=== PATIENT | female | born 1965 | race Caucasian/White ===

== ENCOUNTER 2017-09-06 10:15 | Emergency (ER) | payer BC ==
[~2017-09-06] VITALS: Ht 157.5 cm; Wt 70.5 kg
[2017-09-06] MEDS ORDERED: GLIP1TAB49 PO (10:24)
[2017-09-06] MEDS ORDERED: ALEV220C2 PO (10:24)
--- NOTE | 2017-09-06 11:59 | REP ---
Clinical: Right flank pain. Comparison: 12/03/2014. Findings: Liver, spleen, pancreas, gallbladder, bilateral adrenal glands and kidneys are normal for noncontrast evaluation. Specifically, no perinephric stranding, hydroureteronephrosis, intrarenal or obstructing ureteral calculi are identified. The enteric system is without obstruction or acute inflammatory process and a normal terminal ileum and appendix are identified in the right lower quadrant. Pelvis demonstrates normal bladder and uterus/left adnexa. Cystic changes to the right adnexa measure up to 4.6 cm and are likely related to menstrual cycle as well as possibly related to patient's symptoms. No pelvic fluid or ascites. No free air. No adenopathy. Abdominal aorta without aneurysm. Musculoskeletal structures are intact. Lung bases are clear. Impression: 1. Normal urinary tract system and right lower quadrant/appendix. 2. Cystic changes to the right adnexa measuring up to 4.6 cm maximal diameter likely physiologic and possibly related to patient's symptoms. 3. No further acute abdominopelvic pathology appreciated. No free fluid. Signed by Hima Dumont MD 09/06/2017 11:51 A
[2017-09-06] MEDS ORDERED: CYCL10TA PO (12:23)
[2017-09-06 12:43] VITALS: BP 147/92
== END 2017-09-06 12:46 | disposition home or self-care (01) ==
LOC: M ED 10:15
DX: R10.9 Unspecified abdominal pain (principal); K25.9 Gastric ulcer, unspecified as acute or chronic, without hemorrhage or perforation; Z79.84 Long term (current) use of oral hypoglycemic drugs; Z79.899 Other long term (current) drug therapy; Z88.8 Allergy status to other drugs, medicaments and biological substances

== ENCOUNTER 2019-01-12 12:25 | Emergency (ER) | payer BC ==
[~2019-01-12] VITALS: Ht 157.5 cm; Wt 71.8 kg
[~2019-01-12 12:25] MED LIST: ALEV220C2 PO; CYCL10TA PO; GLIP5TAB20 PO
[2019-01-12] MEDS ORDERED: LISI10TA4 (12:51)
[2019-01-12] MEDS ORDERED: TRAZ-160 (12:51)
[2019-01-12] MEDS ORDERED: PIOG1TAB36 (12:51)
[2019-01-12] MEDS ORDERED: ASPI81TA85 PO (12:51)
[2019-01-12] MEDS ORDERED: ALPR0.5T3 (12:51)
[2019-01-12] MEDS ORDERED: TETRACAINE 0.5% OPHTH SOLN 4ML OU ONE (13:30)
[2019-01-12 14:20] VITALS: BP 140/69
== END 2019-01-12 14:22 | disposition home or self-care (01) ==
LOC: M ED 12:25
DX: H43.12 Vitreous hemorrhage, left eye (principal); E11.9 Type 2 diabetes mellitus without complications; Z88.8 Allergy status to other drugs, medicaments and biological substances; Z79.899 Other long term (current) drug therapy; Z79.82 Long term (current) use of aspirin

== ENCOUNTER 2019-01-14 13:05 | Emergency (ER) | payer BC ==
[~2019-01-14] VITALS: Ht 157.5 cm; Wt 71.8 kg
[~2019-01-14 13:05] MED LIST changes: +ALPR0.5T3; +ASPI81TA85 PO; +LISI10TA4; +PIOG1TAB36; +TRAZ-160
[2019-01-14 13:06] VITALS: BP 138/77
[2019-01-14] MEDS ORDERED: VALI10TA PO (14:02)
== END 2019-01-14 14:12 | disposition home or self-care (01) ==
LOC: M ED 13:05
DX: Z76.0 Encounter for issue of repeat prescription (principal); F41.9 Anxiety disorder, unspecified; E11.9 Type 2 diabetes mellitus without complications; Z79.82 Long term (current) use of aspirin; Z79.899 Other long term (current) drug therapy; Z88.8 Allergy status to other drugs, medicaments and biological substances; Z98.890 Other specified postprocedural states

== ENCOUNTER → 2019-04-05 | Outpatient (REF) | payer BC ==
[~2019-04-05] MED LIST changes: -TRAZ-160; +TRAZ-252; +VALI10TA PO
== END ==
LOC: M LAB REF 19:12
PROVIDERS: ATTEND Physician Assistant
DX: N39.0 Urinary tract infection, site not specified (principal)

== ENCOUNTER 2019-05-10 21:10 | Emergency (ER) | payer BC ==
[~2019-05-10] VITALS: Ht 157.5 cm; Wt 71.8 kg
[2019-05-10] MEDS ORDERED: IBUPROFEN 600 MG TAB PO ONE (22:00)
[2019-05-10] MEDS ORDERED: PERCOCET 5MG/325MG TAB PO ONE (22:30)
[2019-05-10] MEDS ORDERED: LIDOCAINE 1% MDV 20ML VIAL IM ONE (22:45)
[2019-05-10] MEDS ORDERED: ADACEL/BOOSTRIX VACCINE (DIPHTH/PERTUSS/ACELL/TETANUS)0.5ML SYR (90715) IM ONE (22:45)
--- NOTE | 2019-05-11 00:11 | REPVR ---
EXAM: CT Head Without Contrast EXAM DATE/TIME: 05/10/2019 10:26 PM CLINICAL HISTORY: 54 years old, female; Injury or trauma; Injury history: Dog bite; Initial encounter; Concussion / head injury; Additional info: Dog attack, heard crunching, soft areas in occiput TECHNIQUE: Imaging protocol: Computed tomography images of the head without contrast. Radiation optimization: All CT scans at this facility use at least one of these dose optimization techniques: automated exposure control; mA and/or kV adjustment per patient size (includes targeted exams where dose is matched to clinical indication); or iterative reconstruction. COMPARISON: No relevant prior studies available. FINDINGS: Brain: Normal. No hemorrhage. Unremarkable white matter. No mass effect. Ventricles: Normal. No ventriculomegaly. Bones/joints: Unremarkable. No acute fracture. Sinuses: Visualized sinuses are unremarkable. No fluid levels. Mastoid air cells: Visualized mastoid air cells are well aerated. No mastoid effusion. Soft tissues: Moderate soft tissue swelling and foci of air in the posterior parieto-occipital scalp. IMPRESSION: No intracranial abnormality. Moderate soft tissue swelling and foci of air in the posterior parieto-occipital scalp. Electronically signed by: Sabiha Jolly On 05/11/2019 00:10:42 AM
[2019-05-11 00:45] VITALS: BP 124/64
[2019-05-11] MEDS ORDERED: cefTRIAXone SOD 1 GM VIAL (J0696) IM ONE (00:45)
[2019-05-11] MEDS ORDERED: LIDOCAINE 1% SDV 5 ML VIAL DILUENT ONE (00:45)
[2019-05-11] MEDS ORDERED: AUGMENTIN 875 MG TAB PO ONE (00:45)
[2019-05-11] MEDS ORDERED: AUGM875T28 PO (00:45)
[2019-05-11] MEDS ORDERED: NORC1TAB7 PO (00:46)
[2019-05-11] MEDS ORDERED: JARD1TAB3 OR (00:52)
[2019-05-11] MEDS ORDERED: ATOR1TAB19 OR (00:52)
[2019-05-11] MEDS ORDERED: NORCO 5/325MG TABLET (BULK FOR ED) PO ONE (01:00)
== END 2019-05-11 01:10 | disposition home or self-care (01) ==
LOC: M ED 21:10
DX: S01.01XA Laceration without foreign body of scalp, initial encounter (principal); S01.85XA Open bite of other part of head, initial encounter; W54.0XXA Bitten by dog, initial encounter; Y92.199 Unspecified place in other specified residential institution as the place of occurrence of the external cause; Y93.9 Activity, unspecified; E11.9 Type 2 diabetes mellitus without complications; Z79.84 Long term (current) use of oral hypoglycemic drugs; Z79.899 Other long term (current) drug therapy; Z88.2 Allergy status to sulfonamides; Z88.8 Allergy status to other drugs, medicaments and biological substances
CPT/HCPCS: 70450; 90715; 99283; J0696

== ENCOUNTER 2021-03-16 16:10 | Emergency (ER) | payer BC ==
[~2021-03-16] VITALS: Ht 157.5 cm; Wt 73.8 kg
[~2021-03-16 16:10] MED LIST changes: -ASPI81TA85 PO; +ASPI81TA86 PO; +ATOR1TAB19 OR; +AUGM875T28 PO; +CYCL-707 PO; -CYCL10TA PO; +JARD1TAB3 OR; +LISI10TA22; -LISI10TA4; +NORC1TAB7 PO
[2021-03-16 17:26] LABS: BASO # 0.1 10^3/uL (0.0-0.2); BASO % 0.7 % (0.0-1.0); EOS # 0.1 10^3/uL (0.0-0.5); EOS % 1.2 % (0.0-3.0); HEMATOCRIT 40.1 % (36.0-47.0); HEMOGLOBIN 13.5 g/dl (12.0-15.5); LYMPH # 2.8 10^3/uL (1.5-5.0); LYMPH % 38.3 % (24.0-44.0); MEAN CORPUSCULAR HEMOGLOBIN 28.8 pg (27.0-33.0); MEAN CORPUSCULAR HGB CONC 33.7 g/dl (32.0-36.5); MEAN CORPUSCULAR VOLUME 85.5 fl (80.0-96.0); MONO # 0.7 10^3/uL (0.0-0.8); MONO % 9.3 % (2.0-8.0); NEUTROPHILS # 3.6 10^3/uL (1.5-8.5); NEUTROPHILS % 50.1 % (36.0-66.0); PLATELET COUNT, AUTOMATED 336 10^3/uL (150-450); RED BLOOD COUNT 4.69 10^6/uL (4.00-5.40); WHITE BLOOD COUNT 7.3 10^3/uL (4.0-10.0)
--- NOTE | 2021-03-16 17:33 | REP ---
INDICATION: CHEST PAIN COMPARISON: None. TECHNIQUE: Portable AP view of the chest FINDINGS: The mediastinum and cardiac silhouette are within normal limits for portable technique. The lung chavez are clear without acute consolidation, effusion, or pneumothorax. Skeletal structures are intact. IMPRESSION: No acute cardiopulmonary process appreciated. <Electronically signed by Hima Dumont > 03/16/21 [id number]
[2021-03-16 17:36] LABS: INR 0.94; PROTHROMBIN TIME 12.8 SECONDS (12.5-14.3)
[2021-03-16 17:54] LABS: ALBUMIN 3.9 GM/DL (3.2-5.2); ALT/SGPT 19 U/L (12-78); BILIRUBIN,DIRECT 0.2 MG/DL (0.0-0.2); BILIRUBIN,TOTAL 0.6 MG/DL (0.2-1.0); BLOOD UREA NITROGEN 12 MG/DL (7-18); CALCIUM LEVEL 10.4 MG/DL (8.5-10.1); CARBON DIOXIDE LEVEL 28 MEQ/L (21-32); CHLORIDE LEVEL 99 MEQ/L (98-107); CREATININE FOR GFR 0.67 MG/DL (0.55-1.30); GLOMERULAR FILTRATION RATE > 60.0 (>51); GLUCOSE, FASTING 171 MG/DL (70-100); LIPASE 112 U/L (73-393); POTASSIUM SERUM 4.1 MEQ/L (3.5-5.1); SODIUM LEVEL 135 MEQ/L (136-145); TOTAL PROTEIN 8.2 GM/DL (6.4-8.2)
[2021-03-16] MEDS ORDERED: ISOVUE-370 76% 100ML VIAL As Ordered ONE (18:57)
[2021-03-16] MEDS: NS 1,000 ML IV ONE (18:59)
--- NOTE | 2021-03-16 19:37 | ECGEPIP ---
[facility] - ED Test Date: 2021-03-16 Pat Name: ELIECER MURRAY Department: Room: - Gender: Female Mate First: : 1965 Requested By: All Calderon Order Number: [id number] Reading MD: All Calderon Measurements Intervals [place] Rate: 81 P: 60 TN: 156 QRS: 12 QRSD: 78 T: 36 QT: 376 QTc: 436 Interpretive Statements Normal sinus rhythm Nonspecific ST T wave changes No prior ECG for comparison Electronically Signed on 03-16-2021 19:36:47 EDT by All Calderon
--- NOTE | 2021-03-16 20:06 | REPVR ---
PROCEDURE INFORMATION: Exam: CT Head Without Contrast Exam date and time: 03/16/2021 7:22 PM Age: 56 years old Clinical indication: Pain; Headache TECHNIQUE: Imaging protocol: Computed tomography of the head without contrast. Radiation optimization: All CT scans at this facility use at least one of these dose optimization techniques: automated exposure control; mA and/or kV adjustment per patient size (includes targeted exams where dose is matched to clinical indication); or iterative reconstruction. COMPARISON: CT Head without contrast 05/10/2019 11:22 PM FINDINGS: Brain: There is no evidence of mass effect. The meneses-white differentiation appears preserved. Cerebral ventricles: There is no evidence of intracranial bleed normal ventricles. Paranasal sinuses: Clear paranasal sinuses. Mastoid air cells: Clear mastoid air cells Bones/joints: There is no evidence of fracture. Soft tissues: Unremarkable. IMPRESSION: Normal appearing CT scan of the brain. Electronically signed by: Willis Montenegro On 03/16/2021 20:06:25 PM
--- NOTE | 2021-03-16 21:09 | REPVR ---
PROCEDURE INFORMATION: Exam: CT Abdomen And Pelvis With Contrast Exam date and time: 03/16/2021 7:22 PM Age: 56 years old Clinical indication: Abdominal pain; Generalized TECHNIQUE: Imaging protocol: Computed tomography of the abdomen and pelvis with contrast. Radiation optimization: All CT scans at this facility use at least one of these dose optimization techniques: automated exposure control; mA and/or kV adjustment per patient size (includes targeted exams where dose is matched to clinical indication); or iterative reconstruction. Contrast material: ISOVUE 370; Contrast volume: 100 ml; Contrast route: INTRAVENOUS (IV); COMPARISON: CT ABD PELVIS W/O CONTRAST 09/06/2017 11:37 AM FINDINGS: Lungs: Clear appearing lung bases. Heart: The heart is normal in size and there is no pericardial effusion. Liver: Normal appearing liver. Gallbladder and bile ducts: Normal appearing gallbladder. Normal common bile duct. Pancreas: Normal appearing pancreas. Spleen: Normal appearing spleen. Adrenal glands: Normal adrenal glands. Kidneys and ureters: There is enhancement of both kidneys. There is no evidence of hydronephrosis. There is mild scarring posterior aspect of the left kidney and a tiny cyst. Stomach and bowel: Secretions and food material are seen within the stomach. Normal appearing small bowel. There is mild thickening of the rectum which could be secondary to the mild colitis/proctitis. Appendix: Normal appendix. Intraperitoneal space: There is no evidence of pneumoperitoneum. There is no evidence of free fluid in the abdomen or the pelvis. There is no evidence of mesenteric mass. Vasculature: Enhancement of the renal arteries. Lymph nodes: There is no evidence of lymphadenopathy. Urinary bladder: Normal urinary bladder. Normal size uterus. Bones/joints: There is moderate broad-based disc protrusion L4-L5. IMPRESSION: 1. Normal appearing CT scan of the abdomen 2. Mild thickening of the bowel wall of the rectum which which may be secondary to proctitis. Electronically signed by: Willis Montenegro On 03/16/2021 21:09:19 PM
[2021-03-16] MEDS ORDERED: DICY10CA13 PO (22:56)
[2021-03-16] MEDS ORDERED: REGL10TA6 PO (22:56)
[2021-03-16 23:30] VITALS: BP 122/62
[2021-03-16] MEDS: DICYCLOMINE 10 MG CAP PO ONE (23:45)
[2021-03-16] MEDS: METOCLOPRAMIDE 10 MG TAB PO ONE (23:46)
--- NOTE | 2021-03-18 14:28 | ED PDOC ---
Post-Departure Follow-Up ct abd/p faxed to [facility] for fu All Amaro MD Mar 18, 2021 14:28
== END 2021-03-16 23:48 | disposition home or self-care (01) ==
LOC: M ED 16:10
DX: R51.9 Headache, unspecified (principal); K31.84 Gastroparesis; E11.9 Type 2 diabetes mellitus without complications; I10 Essential (primary) hypertension; E78.70 Disorder of bile acid and cholesterol metabolism, unspecified; F41.9 Anxiety disorder, unspecified; Z79.899 Other long term (current) drug therapy; Z87.11 Personal history of peptic ulcer disease; Z98.890 Other specified postprocedural states
CPT/HCPCS: 70450; 71045; 74177; 80053; 82248; 83690; 84484; 85025; 85610; 93005; 93041; 94760; 96360; 96361; 99285; Q9967

== ENCOUNTER → 2022-07-14 | Outpatient (REF) | payer BC ==
[~2022-07-14] MED LIST changes: +DICY10CA13 PO; +REGL10TA6 PO
[2022-07-14 19:04] LABS: BASO % 0.6 % (0.0-1.0); EOS # 0.2 10^3/uL (0.0-0.5); EOS % 2.9 % (0.0-3.0); LYMPH # 2.9 10^3/uL (1.5-5.0); LYMPH % 42.5 % (24.0-44.0); MEAN CORPUSCULAR HEMOGLOBIN 29.1 pg (27.0-33.0); MEAN CORPUSCULAR HGB CONC 33.3 g/dl (32.0-36.5); MEAN CORPUSCULAR VOLUME 87.2 fl (80.0-96.0); MONO # 0.5 10^3/uL (0.0-0.8); MONO % 6.8 % (2.0-8.0); NEUTROPHILS # 3.2 10^3/uL (1.5-8.5); NEUTROPHILS % 46.8 % (36.0-66.0); PLATELET COUNT, AUTOMATED 321 10^3/uL (150-450); RED BLOOD COUNT 4.13 10^6/uL (4.00-5.40); WHITE BLOOD COUNT 6.9 10^3/uL (4.0-10.0)
[2022-07-14 19:45] LABS: ERYTHROCYTE SEDIMENTATION RATE 56 mm/hr (0-30)
[2022-07-14 19:49] LABS: ALBUMIN 3.8 GM/DL (3.2-5.2); ALT/SGPT 24 U/L (12-78); BILIRUBIN,TOTAL 0.5 MG/DL (0.2-1.0); BLOOD UREA NITROGEN 13 MG/DL (7-18); CARBON DIOXIDE LEVEL 28 MEQ/L (21-32); CHLORIDE LEVEL 103 MEQ/L (98-107); CREATININE FOR GFR 0.69 MG/DL (0.55-1.30); GLOMERULAR FILTRATION RATE > 60.0 (>51); GLUCOSE, FASTING 124 MG/DL (70-100); POTASSIUM SERUM 4.1 MEQ/L (3.5-5.1); SODIUM LEVEL 136 MEQ/L (136-145); TOTAL PROTEIN 7.8 GM/DL (6.4-8.2)
[2022-07-15 15:29] LABS: HEPATITIS B SURFACE ANTIGEN NEGATIVE (NEGATIVE)
[2022-07-15 15:55] LABS: HEPATITIS C VIRUS ABY INDEX < 0.0 INDEX (<0.8)
[2022-07-15 15:56] LABS: HEPATITIS B CORE ANTIBODY IGM NEGATIVE (NEGATIVE)
== END ==
LOC: M SFHCRHEU 14:16
PROVIDERS: ATTEND Internal Medicine Rheumatology
DX: M06.09 Rheumatoid arthritis without rheumatoid factor, multiple sites (principal); Z79.899 Other long term (current) drug therapy; M15.9 Polyosteoarthritis, unspecified

== ENCOUNTER 2023-04-02 05:22 | Emergency (ER) | payer BC ==
[~2023-04-02] VITALS: Ht 157.5 cm; Wt 77.2 kg
[2023-04-02] MEDS ORDERED: TIRZ2.5P SQ (05:35)
[2023-04-02] MEDS ORDERED: NS 1,000 ML IV ONE ×2 (06:45→08:25)
[2023-04-02 07:04] LABS: VENOUS BASE EXCESS 0.2 (-2.0-2.0); VENOUS HCO3 25.4 MMOL/L (23.0-27.0); VENOUS O2 SATURATION 85.4 % (60.0-80.0); VENOUS PARTIAL PRESSURE CO2 43.6 mmHg (38.0-50.0); VENOUS PH 7.384 UNITS (7.330-7.430); VENOUS STANDARD HCO3 24.4 MMOL/L; VENOUS TOTAL CO2 26.8 MMOL/L (24.0-28.0)
[2023-04-02 07:10] LABS: BASO % 0.3 % (0.0-1.0); EOS % 0.2 % (0.0-3.0); HEMATOCRIT 36.8 % (36.0-47.0); HEMOGLOBIN 12.5 g/dl (12.0-15.5); LYMPH # 1.8 10^3/uL (1.5-5.0); MEAN CORPUSCULAR HEMOGLOBIN 29.1 pg (27.0-33.0); MEAN CORPUSCULAR VOLUME 85.6 fl (80.0-96.0); MONO # 0.8 10^3/uL (0.0-0.8); MONO % 7.9 % (2.0-8.0); NEUTROPHILS # 6.9 10^3/uL (1.5-8.5); NEUTROPHILS % 72.3 % (36.0-66.0); PLATELET COUNT, AUTOMATED 298 10^3/uL (150-450); WHITE BLOOD COUNT 9.5 10^3/uL (4.0-10.0)
[2023-04-02 07:34] LABS: LIPASE 27 U/L (12-53)
[2023-04-02 07:35] LABS: CPK CREATINE PHOSPHOKINASE 56 U/L (34-145)
[2023-04-02 07:36] LABS: ALBUMIN 3.8 G/DL (3.2-5.2); ALKALINE PHOSPHATASE 102 U/L (46-116); ALT/SGPT 14 U/L (7.0-40); AST/SGOT < 8 U/L (<34); BLOOD UREA NITROGEN 15 MG/DL (9-23); CALCIUM LEVEL 10.4 MG/DL (8.5-10.1); CARBON DIOXIDE LEVEL 27 MMOL/L (20-31); CHLORIDE LEVEL 100 MMOL/L (98-107); CK-MB VALUE MASS < 1.0 NG/ML (<3.6); CREATININE FOR GFR 0.74 MG/DL (0.55-1.30); GLOMERULAR FILTRATION RATE > 60.0 (>51); GLUCOSE, FASTING 197 MG/DL (60-100); MB/CK RELATIVE INDEX 1.78 (< OR =4); POTASSIUM SERUM 4.1 MMOL/L (3.5-5.1); SODIUM LEVEL 134 MMOL/L (136-145); TOTAL PROTEIN 7.2 G/DL (5.7-8.2)
[2023-04-02 07:38] LABS: FREE THYROXINE INDEX 3.5 % (1.3-4.8); T UPTAKE 29.7 % (22.5-37.0); THYROID STIMULATING HORMONE 2.588 uIU/ML (0.55-4.78); THYROXINE (T4) 11.9 UG/DL (4.5-10.9)
[2023-04-02 07:43] LABS: RSV AMPLIFICATION NEGATIVE (NEGATIVE)
[2023-04-02] MEDS ORDERED: ISOVUE-370 76% 100ML VIAL As Ordered ONE (09:02)
[2023-04-02] MEDS ORDERED: FLEET OIL RETENTION ENEMA PR STA (09:41)
[2023-04-02] MEDS ORDERED: FLEEENE12 PR (11:39)
[2023-04-02] MEDS ORDERED: LACT10SO3 PO (11:39)
[2023-04-02] MEDS ORDERED: MAGNESIUM CITRATE 300ML BTL PO ONE (11:40)
[2023-04-02 12:11] VITALS: BP 133/89; TEMP 98.9; O2SAT 99
[2023-04-02] MEDS ORDERED: AMOX875T2 PO (12:32)
== END 2023-04-02 12:14 | disposition home or self-care (01) ==
LOC: M ED 05:22
DX: K57.32 Diverticulitis of large intestine without perforation or abscess without bleeding (principal); K59.00 Constipation, unspecified; R53.1 Weakness; E11.9 Type 2 diabetes mellitus without complications; E78.5 Hyperlipidemia, unspecified; R01.1 Cardiac murmur, unspecified; I10 Essential (primary) hypertension; Z88.6 Allergy status to analgesic agent; Z88.8 Allergy status to other drugs, medicaments and biological substances; Z79.2 Long term (current) use of antibiotics; Z79.899 Other long term (current) drug therapy; Z79.811 Long term (current) use of aromatase inhibitors; Z79.4 Long term (current) use of insulin
CPT/HCPCS: 71045; 74018; 74177; 80053; 81001; 82010; 82550; 82553; 82803; 83605; 83690; 84436; 84443; 84479; 84484; 85025; 87086; 87631; 93005; 96360; 96361; 99284; Q9967

== ENCOUNTER → 2024-07-25 | Outpatient (CLI) | payer MEDICARE, BC ==
[~2024-07-25] MED LIST changes: +AMOX875T2 PO; +DIAZ-654 PO; +DICY-61 PO; -DICY10CA13 PO; +FLEEENE12 PR; +LACT10SO3 PO; +TIRZ2.5P SQ; -VALI10TA PO
== END ==
LOC: M WHC 09:17
PROVIDERS: ATTEND Nurse Practitioner Adult Health
DX: Z12.31 Encounter for screening mammogram for malignant neoplasm of breast (principal); N64.9 Disorder of breast, unspecified

== ENCOUNTER → 2025-05-28 | Outpatient (CLI) | payer MEDICARE ==
[~2025-05-28] MED LIST changes: +GLIP-318 PO; -GLIP5TAB20 PO; -LACT10SO3 PO; +LACT10SO94 PO
== END ==
LOC: M WHC 13:58
PROVIDERS: ATTEND Nurse Practitioner Adult Health
DX: Z12.31 Encounter for screening mammogram for malignant neoplasm of breast (principal); R92.313 Mammographic fatty tissue density, bilateral breasts